=== PATIENT | female | born 1965 | race Caucasian/White ===

== ENCOUNTER → 2017-06-30 | Outpatient (CLI) | payer OTHER ==
--- NOTE | 2017-06-30 13:27 | WOMENS IMAGING REPORT ---
EXAM DESCRIPTION: BILAT DIAGNOSTIC MAMMO W/CAD; U/S BREAST UNILAT LIMITED COMPLETED DATE/TIME: 06/30/2017 8:39 am; 06/30/2017 9:33 am REASON FOR STUDY: LEFT BREAST LUMP;N63.23; LEFT BREAST LUMP N63.23 UNSPECIFIED LUMP IN THE LEFT MOHAN AST, LOWER OUTER QUAD COMPARISON: None. TECHNIQUE: Standard craniocaudal and mediolateral oblique views of each breast recorded using digita l acquisition. Additional left breast 90 mediolateral view. Additional cone compression lower inner quadrant left breast in the CC and MLO orientations. Left breast ultrasound was also performed. LIMITATIONS: None. FINDINGS: RIGHT BREAST MASSES: No suspicious masses. CALCIFICATIONS: No new or suspicious calcifications. ARCHITECTURAL DISTORTION: None. DEVELOPING DENSITY: None. ASYMMETRY: None noted. OTHER: No other significant findings. LEFT BREAST MASSES: No suspicious masses. CALCIFICATIONS: No new or suspicious calcifications. ARCHITECTURAL DISTORTION: None. DEVELOPING DENSITY: None. ASYMMETRY: None noted. OTHER: No other significant finding. Read with the assistance of CAD: .[facility] - R2 Cenova Version 1.3 .[facility] Imaging - R2 Cenova Version 1.3 .[facility] Imaging - R2 Cenova Version 2.4 .[facility] - R2 Cenova Version 2.4 .[facility] - R2 Assistant Distribution Manager Version 9.2 Left breast ultrasound: Along the lower inner quadrant left breast at least 10 cm from the nipple near the sternum, a hypoech oic solid mass is present, 11 x 11 mm in size. Minimal internal color flow. Slightly irregular bord ers. This is suspicious for malignancy. Ultrasound-guided core biopsy and post biopsy clip placemen t with follow-up two-view mammogram recommended. These findings were discussed with Dr. Carias, 1300 hours 06/30/2017. IMPRESSION: No mammographic evidence for malignancy right breast. Solid nodule left breast lower inner quadrant in the parasternal region, suspicious for malignancy. Ultrasound-guided core biopsy with post biopsy clip placement and follow-up two-view mammogram recomm ended. Findings discussed with the patient's primary care provider as above BREAST DENSITY: b. There are scattered areas of fibroglandular density. BIRAD: 4 Suspicious. Biopsy should be considered. RECOMMENDATION: RECOMMENDED FOLLOW UP: Left breast ultrasound-guided core biopsy, post biopsy clip p lacement with follow-up two-view mammogram SPECIFIC INTERVENTION/IMAGING/CONSULTATION RECOMMENDED:As above COMMUNICATION:Patient notified by letter. Report called to Dr. Carias, 1300 hours 06/30/2017 COMMENT: The patient has been notified of the results by letter per SA requirements. Additional no tification policies are in place for contacting patient with suspicious or incomplete findings. Quality ID #[id number]: The [employer] recommends an annual screening mammogram for women aged 40 years or over. This facility utilizes a reminder system to ensure that all patients receive reminder letters, and/or direct phone calls for appointments. This includes reminders for routine scr eening mammograms, diagnostic mammograms, or other Breast Imaging Interventions when appropriate. Th is patient will be placed in the appropriate reminder system. The [employer] (ACR) has developed recommendations for screening MRI of the breast s in certain patient populations, to be used in conjunction with mammography. Breast MRI surveillanc e may be appropriate for women with more than 20% lifetime risk of developing breast cancer as deter mined by genetic testing, significant family history of the disease, or history of mantle radiation f or Hodgkins Disease. ACR Practice Guidelines 2008. TECHNICAL DOCUMENTATION: FINDING NUMBER: (1) ASSESSMENT: (1) JOB ID: [id number] [employer]- All Rights Reserved Reading location - IP/workstation name: [facility]-RR
--- NOTE | 2017-06-30 13:27 | WOMENS IMAGING REPORT ---
EXAM DESCRIPTION: BILAT DIAGNOSTIC MAMMO W/CAD; U/S BREAST UNILAT LIMITED COMPLETED DATE/TIME: 06/30/2017 8:39 am; 06/30/2017 9:33 am REASON FOR STUDY: LEFT BREAST LUMP;N63.23; LEFT BREAST LUMP N63.23 UNSPECIFIED LUMP IN THE LEFT MOHAN AST, LOWER OUTER QUAD COMPARISON: None. TECHNIQUE: Standard craniocaudal and mediolateral oblique views of each breast recorded using digita l acquisition. Additional left breast 90 mediolateral view. Additional cone compression lower inner quadrant left breast in the CC and MLO orientations. Left breast ultrasound was also performed. LIMITATIONS: None. FINDINGS: RIGHT BREAST MASSES: No suspicious masses. CALCIFICATIONS: No new or suspicious calcifications. ARCHITECTURAL DISTORTION: None. DEVELOPING DENSITY: None. ASYMMETRY: None noted. OTHER: No other significant findings. LEFT BREAST MASSES: No suspicious masses. CALCIFICATIONS: No new or suspicious calcifications. ARCHITECTURAL DISTORTION: None. DEVELOPING DENSITY: None. ASYMMETRY: None noted. OTHER: No other significant finding. Read with the assistance of CAD: .[facility] - R2 Cenova Version 1.3 .[facility] Imaging - R2 Cenova Version 1.3 .[facility] Imaging - R2 Cenova Version 2.4 .[facility] - R2 Cenova Version 2.4 .[facility] - R2 Air Carrier Operations Inspector Version 9.2 Left breast ultrasound: Along the lower inner quadrant left breast at least 10 cm from the nipple near the sternum, a hypoech oic solid mass is present, 11 x 11 mm in size. Minimal internal color flow. Slightly irregular bord ers. This is suspicious for malignancy. Ultrasound-guided core biopsy and post biopsy clip placemen t with follow-up two-view mammogram recommended. These findings were discussed with Dr. Carias, 1300 hours 06/30/2017. IMPRESSION: No mammographic evidence for malignancy right breast. Solid nodule left breast lower inner quadrant in the parasternal region, suspicious for malignancy. Ultrasound-guided core biopsy with post biopsy clip placement and follow-up two-view mammogram recomm ended. Findings discussed with the patient's primary care provider as above BREAST DENSITY: b. There are scattered areas of fibroglandular density. BIRAD: 4 Suspicious. Biopsy should be considered. RECOMMENDATION: RECOMMENDED FOLLOW UP: Left breast ultrasound-guided core biopsy, post biopsy clip p lacement with follow-up two-view mammogram SPECIFIC INTERVENTION/IMAGING/CONSULTATION RECOMMENDED:As above COMMUNICATION:Patient notified by letter. Report called to Dr. Carias, 1300 hours 06/30/2017 COMMENT: The patient has been notified of the results by letter per SA requirements. Additional no tification policies are in place for contacting patient with suspicious or incomplete findings. Quality ID #[id number]: The [employer] recommends an annual screening mammogram for women aged 40 years or over. This facility utilizes a reminder system to ensure that all patients receive reminder letters, and/or direct phone calls for appointments. This includes reminders for routine scr eening mammograms, diagnostic mammograms, or other Breast Imaging Interventions when appropriate. Th is patient will be placed in the appropriate reminder system. The [employer] (ACR) has developed recommendations for screening MRI of the breast s in certain patient populations, to be used in conjunction with mammography. Breast MRI surveillanc e may be appropriate for women with more than 20% lifetime risk of developing breast cancer as deter mined by genetic testing, significant family history of the disease, or history of mantle radiation f or Hodgkins Disease. ACR Practice Guidelines 2008. TECHNICAL DOCUMENTATION: FINDING NUMBER: (1) ASSESSMENT: (1) JOB ID: [id number] [employer]- All Rights Reserved Reading location - IP/workstation name: [facility]-RR
== END ==
LOC: WI 07:53
PROVIDERS: ATTEND Internal Medicine
DX: N63.23 Unspecified lump in the left breast, lower outer quadrant (principal)
CPT/HCPCS: 76642; 77066

== ENCOUNTER → 2017-07-16 | Day surgery (SDC) | payer OTHER ==
[~2017-07-16] MED LIST: LIDOCAINE 2% INJ (20 MG/ML) 20 ML MDV ONE
--- NOTE | 2017-07-21 09:09 | WOMENS IMAGING REPORT ---
EXAM DESCRIPTION: U/S BREAST BX; LEFT DIG DX MAMMO NO CHG COMPLETED DATE/TIME: 07/16/2017 2:08 pm; 07/16/2017 2:55 pm REASON FOR STUDY: UNSPECIFIED LUMP; N63.20; N63.20 S/P LEFT US BREAST BX N63.20 UNSPECIFIED LUMP IN THE LEFT BREAST, UNSPECIFIED QUAD COMPARISON: 06/30/2017. TECHNIQUE: The procedure was discussed with the patient and the patient agreed to proceed. The patient was scanned and the area of interest in the 7-8 o'clock position of the left breast was l ocalized. This correlates with the area of concern on prior imaging studies. This area was targeted for ultrasound-guided core biopsy. After sterile skin prep and 10 mL local lidocaine 1% for skin and deep tissue anesthesia, a 14 gauge coaxial core biopsy needle was used to obtain several cores of tissue from the lesion. Under ultraso und guidance, a marker clip was placed in the areas sampled. There were no immediate post-procedure complications. MAMMOGRAM: Post-procedure two view mammogram was acquired in the digital mammogram suite. The clip wa s not adequately visualized due to the far inferior medial position of the lesion. 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 Pathology is concordant. LIMITATIONS: None. FINDINGS: Ultrasound guided breast biopsy as described above. POST PROCEDURE MAMMOGRAMS FOR MARKER PLACEMENT: Yes IMPRESSION: ULTRASOUND-GUIDED CORE BIOPSY OF THE LEFT BREAST YIELDS A DIAGNOSIS OF poorly Differenti ated Carcinoma. COMMENT: COMMUNICATION: Two attempts were made to notify the patient by phone of the pathology repor t with no answer. The patient's provider has been notified of the findings. The provider will discus s the findings with the patient. Patient medication list reviewed: Yes- Quality ID# [id number]:Eligible professional attests to documenting i n the medical record they obtained, updated, or reviewed the patient's current medications. TECHNICAL DOCUMENTATION: JOB ID: [id number] [employer]- All Rights Reserved Reading location - IP/workstation name: [email or web address]
== END ==
LOC: WI 12:37 → EDSTATUS 13:00
PROVIDERS: ATTEND Internal Medicine
DX: C50.912 Malignant neoplasm of unspecified site of left female breast (principal)
CPT/HCPCS: 88342 ×2; 88341 ×2; 88305 ×2; 19083; J3490

== ENCOUNTER → 2017-07-28 | Outpatient (CLI) | payer OTHER ==
--- NOTE | 2017-07-29 16:06 | RADIOLOGY REPORT (SQ) ---
EXAM DESCRIPTION: PET CT SKULL/THIGH COMPLETED DATE/TIME: 07/28/2017 7:36 pm REASON FOR STUDY: C80.1 L BREAST PER PATH C50.919 MALIGNANT NEOPLASM OF UNSP SITE OF UNSPECIFIED FE MAL COMPARISON: Caps left breast ultrasound-guided core biopsy 07/16/2017 Diagnostic mammograms and ultrasound 06/30/2017 RADIONUCLIDE AND DOSE: 11.3 mCi F18 FDG The route of agent administration: Intravenous FASTING BLOOD SUGAR: 108 mg/dl CONTRAST TYPE AND DOSE: No CT contrast given. TECHNIQUE: Blood glucose level was verified. Above dose of FDG was injected intravenously. 2-D seg mented attenuation correction images were obtained from the base of the skull to the midthighs. Nonc ontrast CT images were obtained for attenuation correction and fusion with emission images. CT image s were performed without oral or intravenous contrast and are not sensitive for parenchymal lesions. A series of overlapping emission PET images were obtained. [facility] by the radiologist. Images stored on PACS. LIMITATIONS: None. FINDINGS: HEAD AND NECK: No areas of abnormal metabolic activity in the soft tissues of the head and neck. CHEST: In the medial left breast lower inner quadrant 7 to 8 o'clock position, a soft tissue density nodule is present with a biopsy clip. Nodule measures 13 mm in diameter on axial image 98, with SUV of 8.3 compatible with diagnosis of poorly differentiated carcinoma. There are no worrisome pulmonary nodules for primary lung neoplasm. Remainder of the chest is otherw ise unremarkable. ABDOMEN AND PELVIS: No areas of abnormal metabolic activity in the abdomen or pelvis. Expected physi ologic activity is present in the genitourinary system and bowel. PROXIMAL LOWER EXTREMITIES: No areas of abnormal metabolic activity in the soft tissues of the lower extremities. BONES: No abnormal metabolic activity in the visualized skeleton. ADDITIONAL CT FINDINGS: 1.7 cm left upper pole renal cortical cyst. Post cholecystectomy with a fat containing ventral hernia superior to the umbilicus in the midline, containing mesenteric fat. This is best shown on axial image 145. OTHER: Liver background activity 2.8 SUV. Blood pool background activity 1.9 SUV IMPRESSION: Solitary hypermetabolic nodule in the medial left breast, lower inner quadrant. No PET- CT evidence of metastatic disease. No PET-CT evidence of lung primary tumor. Findings discussed with Dr. Pedersen TECHNICAL DOCUMENTATION: JOB ID: [id number] [email or web address]- All Rights Reserved Reading location - IP/workstation name: [email or web address]
== END ==
LOC: RAD 18:26
PROVIDERS: ATTEND Internal Medicine Medical Oncology
DX: C50.312 Malignant neoplasm of lower-inner quadrant of left female breast (principal)
CPT/HCPCS: 78815; A9552

== ENCOUNTER → 2017-10-15 | Outpatient (CLI) | payer OTHER ==
--- NOTE | 2017-10-15 16:45 | RADIOLOGY REPORT (SQ) ---
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 RADIONUCLIDE AND DOSE: 26.6 mCi technetium 99m labeled red blood cells The route of agent administration: Intravenous TECHNIQUE: Following administration of the radionuclide, gated images of the heart are obtained in t hree projections. Left ventricular functional analysis performed. LIMITATIONS: None. FINDINGS: LEFT VENTRICULAR FUNCTION: EJECTION FRACTION: 55%. END-DIASTOLIC VOLUME: 45 mL. END-SYSTOLIC VOLUME: 17 mL. WALL MOTION: No focal wall motion abnormalities. OTHER: No other significant finding. IMPRESSION: NORMAL CARDIAC MUGA STUDY. LEFT VENTRICULAR EJECTION FRACTION OF 55%. TECHNICAL DOCUMENTATION: JOB ID: [id number] [employer]- All Rights Reserved Reading location - IP/workstation name: [email or web address]
== END ==
LOC: RAD 13:07
PROVIDERS: ATTEND Internal Medicine Medical Oncology
DX: I42.7 Cardiomyopathy due to drug and external agent (principal)
CPT/HCPCS: 78472; A9560; Q9969

== ENCOUNTER 2017-12-12 09:45 | Emergency (ER) | payer OTHER ==
--- NOTE | 2017-12-12 10:04 | ER Document Report ---
ED Medical Screen (RME) - General Chief Complaint: Redness of Eye Stated Complaint: EYE REDNESS Time Seen by Provider: 12/12/17 10:02 Mode of Arrival: Ambulatory Information source: Patient TRAVEL OUTSIDE OF THE [place] IN LAST 30 DAYS: No - HPI Patient complains to provider of: redness L eye and UTI symptoms Onset: Yesterday - pt with onset of redness L eye and eyelid swelling since yesterday and urinary frequency - Related Data Allergies/Adverse Reactions: codeine [Codeine] Allergy (Verified 05/20/14 14:30) Past Medical History - Past Medical History Cardiac Medical History: Reports: Hx Hypercholesterolemia, Hx Hypertension Endocrine Medical History: Reports: Hx Diabetes Mellitus Type 2 Psychiatric Medical History: Reports: Hx Bipolar Disorder, Hx Schizophrenia Past Surgical History: Reports: Hx Section, Hx Cholecystectomy - Immunizations Hx Diphtheria, Pertussis, Tetanus Vaccination: Yes Physical Exam - Vital signs Vitals: Temp Pulse Resp BP Pulse Ox 99.2 F 122 H 24 H 123/90 H 94 12/12/17 09:53 12/12/17 09:53 12/12/17 09:53 12/12/17 09:53 12/12/17 09:53 Course - Vital Signs Vital signs: Temp Pulse Resp BP Pulse Ox 99.2 F 122 H 24 H 123/90 H 94 12/12/17 09:53 12/12/17 09:53 12/12/17 09:53 12/12/17 09:53 12/12/17 09:53 Doctor's Discharge - Discharge Referrals: ARNOLD ALMONTE MD [Primary Care Provider] - Follow up as needed
[2017-12-12 10:53] LABS: APPEARANCE,URINE CLOUDY; BILIRUBIN,URINE NEGATIVE (NEGATIVE); COLOR,URINE YELLOW; GLUCOSE, URINE NEGATIVE (NEGATIVE); KETONES,URINE 20 mg/dL (NEGATIVE); LEUKOCYTE ESTERASE,URINE TRACE (NEGATIVE); NITRITE,URINE NEGATIVE (NEGATIVE); PROTEIN,URINE 100 mg/dL (NEGATIVE); URINE SPECIFIC GRAVITY 1.017
--- NOTE | 2017-12-12 12:26 | ER Document Report ---
ED Eye Complaint - General Chief Complaint: Redness of Eye Stated Complaint: EYE REDNESS Time Seen by Provider: 12/12/17 10:02 Mode of Arrival: Ambulatory TRAVEL OUTSIDE OF THE [place] IN LAST 30 DAYS: No - HPI Patient complains to provider of: eye itching Onset: Other - Ms. Tobias presented to the emergency department today for evaluation of an itching and red left eye in the setting of previously having allergies which cause her eyes sometimes to water and itch, however because she had been itching it it is become more swollen and she is concerned that she may have accidentally scratched it. She also has been coughing more than usual and is worried there may be some blood in the eye. Eye location: Left - Related Data Allergies/Adverse Reactions: codeine [Codeine] Allergy (Verified 12/12/17 10:06) Past Medical History - General Information source: Patient - Social History Smoking Status: Current Every Day Smoker Chew tobacco use (# tins/day): No Frequency of alcohol use: Rare Drug Abuse: None Family History: Reviewed & Not Pertinent Patient has suicidal ideation: No Patient has homicidal ideation: No - Past Medical History Cardiac Medical History: Reports: Hx Hypercholesterolemia, Hx Hypertension Endocrine Medical History: Reports: Hx Diabetes Mellitus Type 2 Renal/ Medical History: Denies: Hx Peritoneal Dialysis Psychiatric Medical History: Reports: Hx Bipolar Disorder, Hx Schizophrenia Past Surgical History: Reports: Hx Breast Surgery, Hx Section, Hx Cholecystectomy - Immunizations Hx Diphtheria, Pertussis, Tetanus Vaccination: Yes Review of Systems - Review of Systems -: Yes All other systems reviewed and negative Physical Exam - Vital signs Vitals: Temp Pulse Resp BP Pulse Ox 99.2 F 122 H 24 H 123/90 H 94 12/12/17 09:53 12/12/17 09:53 12/12/17 09:53 12/12/17 09:53 12/12/17 09:53 - General General appearance: Appears well In distress: None - HEENT Head: Normocephalic Eyes: Other - Periorbital ecchymoses along the left eye with slight swelling, the left eye is grossly injected, there is appreciable chemosis, there is no appreciable hypopyon, no appreciable hyphema Cornea: Corneal abrasion, Flourescein stain uptake Extraocular movements intact: Yes Eyelashes: Normal Pupils: PERRL - Respiratory Respiratory status: No respiratory distress Chest status: Nontender Breath sounds: Normal Chest palpation: Normal - Cardiovascular Rhythm: Regular Heart sounds: Normal auscultation Murmur: No - Abdominal Inspection: Normal Distension: No distension Bowel sounds: Normal Tenderness: Nontender Organomegaly: No organomegaly - Back Back: Normal, Nontender - Extremities General upper extremity: Normal inspection, Nontender, Normal color, Normal ROM , Normal temperature General lower extremity: Normal inspection, Nontender, Normal color, Normal ROM , Normal temperature, Normal weight bearing. No: Marianna's sign - Neurological Neuro grossly intact: Yes Cognition: Normal Orientation: AAOx4 [place] Coma Scale Eye Opening: Spontaneous Laura Coma Scale Verbal: Oriented [place] Coma Scale Motor: Obeys Commands [place] Coma Scale Total: 15 Speech: Normal Motor strength normal: LUE, RUE, LLE, RLE Sensory: Normal - Psychological Associated symptoms: Normal affect, Normal mood Course - Re-evaluation Re-evalutation: This woman presented for redness in her left eye. She notes that she has been coughing as a result of her chronic smoking and occasionally of urinary tract infections she has had in the past. On examination she is got an obvious subconjunctival left eye. She does appreciably have some ecchymosis as well in the cornea of the left eye. Upon floor seen staining of the left eye is notable for uptake consistent with a likely corneal abrasion. Patient thinks that she may have gotten an eyelash into her eye. She states that she has had issues with urinary tract infections and that actually makes her cough more she believes that the likely cause of her subconjunctival hemorrhages I did ask what might be straining her. She is been rubbing her eye excessively as well because of seasonal allergies. In total through triage as patient did have urine collected and as a result she is got a evidence of potential contaminated urine, corneal abrasion, subconjunctival hemorrhage, and ecchymosis of the eye. There is no acute other abnormality identified though it is notable that she does have some evidence of an elevated heart rate I believe this may be because she was coughing at the time of obtaining it. Her heart rate improved while at rest in the emergency department she was comfortable on room air without an elevated work of breathing. We discussed treatment options and she stated that she was willing to try outpatient treatment with antibiotic drops and antibiotics for her urine infection. She was given return precautions and encouraged follow-up with an conservation engineer in the coming week. - Vital Signs Vital signs: Temp Pulse Resp BP Pulse Ox 99.2 F 105 H 24 H 104/67 96 12/12/17 09:53 12/12/17 12:23 12/12/17 09:53 12/12/17 12:23 12/12/17 12:23 - Laboratory Laboratory results interpreted by me: 12/12/17 10:16 Urine Protein 100 H Urine Ketones 20 H Urine Blood LARGE H Urine Urobilinogen 2.0 H Ur Leukocyte Esterase TRACE H Discharge - Discharge Clinical Impression: Cough Subconjunctival hemorrhage Qualifiers: Laterality: left Qualified Code(s): H11.32 - Conjunctival hemorrhage, left eye Chemosis Qualifiers: Laterality: left Qualified Code(s): H11.422 - Conjunctival edema, left eye Urinary tract infection Qualifiers: Urinary tract infection type: site unspecified Hematuria presence: with hematuria Qualified Code(s): N39.0 - Urinary tract infection, site not specified Corneal abrasion Qualifiers: Encounter type: initial encounter Laterality: left Qualified Code(s): S05.02XA - Injury of conjunctiva and corneal abrasion without foreign body, left eye, initial encounter Condition: Good Disposition: HOME, SELF-CARE Instructions: Antibiotic Therapy ([facility]), Eyedrop Use ([facility]), Urinary Tract Infection ([facility]) Additional Instructions: Your seen today in the emergency department for your eye pain. It looks like you have a corneal abrasion today. Use the antibiotic drops prescribed to you. Make sure that you are also using artificial tears at least 4 times daily. Anabiotic prescribed you to help treat this infection in your urine. Stop smoking. Likely your cough is related to your chronic smoking, your cough is what caused the redness around your eye. Return for any worsening fevers, chills, inability to see out of your left eye or if your eyeball begins to have pain. Prescriptions: Ciprofloxacin HCl [Ciloxan 0.3% Oph Soln 2.5 ml] 1 drop OP BID 10 Days #1 bottle Ciprofloxacin HCl [Cipro 500 mg Tablet] 500 mg PO BID #20 tablet Referrals: ARNOLD ALMONTE MD [Primary Care Provider] - Follow up as needed
[2017-12-12 12:28] VITALS: BP 104/67
== END 2017-12-12 12:47 | disposition home or self-care (01) ==
LOC: ER 09:45
DX: S05.12XA Contusion of eyeball and orbital tissues, left eye, initial encounter (principal); X58.XXXA Exposure to other specified factors, initial encounter; H11.422 Conjunctival edema, left eye; N39.0 Urinary tract infection, site not specified; F17.200 Nicotine dependence, unspecified, uncomplicated; R05 Cough; I10 Essential (primary) hypertension; E11.9 Type 2 diabetes mellitus without complications; Z88.5 Allergy status to narcotic agent
CPT/HCPCS: 81001; 99283

== ENCOUNTER → 2018-03-17 | Outpatient (CLI) | payer MEDICAID, OTHER ==
--- NOTE | 2018-03-17 16:26 | WOMENS IMAGING REPORT ---
EXAM DESCRIPTION: U/S BREAST UNILATERAL, COMPL; 3D DX MAMMO BILAT COMPLETED DATE/TIME: 03/17/2018 12:36 pm; 03/17/2018 10:37 am REASON FOR STUDY: N63.20 UNSPECIFIED LUMP IN THE LEFT BREAST; N63.20 UNSPECIFIED LUMP IN LEFT BREAST , UNSPECIFIED QUADRANT LEFT LUMP N63.20 UNSPECIFIED LUMP IN THE LEFT BREAST, UNSPECIFIED QUAD COMPARISON: Multiple mammograms and ultrasound exams since 06/30/2017 TECHNIQUE: Standard craniocaudal and mediolateral oblique views of each breast recorded using digita l acquisition and breast tomosynthesis. Additional left breast 90 mediolateral tomosynthesis, and cone compression tomosynthesis in the left MLO and CC projections. Patient gives a history of palpable abnormality in the left breast lower inner quadrant. Ultrasound of this area was also performed. LIMITATIONS: None. FINDINGS: RIGHT BREAST MASSES: No suspicious masses. CALCIFICATIONS: No new or suspicious calcifications. ARCHITECTURAL DISTORTION: None. DEVELOPING DENSITY: None. ASYMMETRY: None noted. OTHER: No other significant findings. LEFT BREAST MASSES: No suspicious masses. CALCIFICATIONS: No new or suspicious calcifications. ARCHITECTURAL DISTORTION: None. DEVELOPING DENSITY: None. ASYMMETRY: None noted. OTHER: In the left breast lower inner quadrant 7 to 8 o'clock position, postoperative changes are pre sent with breast parenchymal scarring and oil cyst formation. Oil cysts were identified at ultrasoun d in the area Read with the assistance of CAD: .[facility] - R2 Cenova Version 1.3 .[facility] - R2 Cenova Version 2.1 .[facility] - R2 Cenova Version 2.4 .[facility] - R2 Cenova Version 2.4 .[facility] - R2 Project Management Version 9.2 Left breast ultrasound: Patient indicates a new palpable abnormality in the lower inner quadrant left breast 8 to 9 o'clock p osition. Postsurgical changes are seen at ultrasound, with a 13 x 8 mm focus of fat necrosis at ultr asound. This correlates with the palpable finding. No worrisome features. Other oil cysts are pres ent in the left breast medially in the periareolar region, less than a cm in size, benign IMPRESSION: No mammographic/ tomosynthesis evidence for malignancy bilaterally. No ultrasound evide nce for malignancy left breast. Clinical follow-up for palpable abnormalities. BREAST DENSITY: b. There are scattered areas of fibroglandular density. BIRAD: 2 Benign findings. RECOMMENDATION: RECOMMENDED FOLLOW UP: Clinical follow-up for left breast palpable abnormality. Oth erchiara, continue right breast screening and left breast diagnostic mammograms in March 2019 SPECIFIC INTERVENTION/IMAGING/CONSULTATION RECOMMENDED:No additional intervention/ imaging/consultati on needed at this time. COMMUNICATION:The negative/benign results were communicated to the patient. COMMENT: The patient has been notified of the results by letter per SA requirements. Additional no tification policies are in place for contacting patient with suspicious or incomplete findings. Quality ID #225: The [employer] recommends an annual screening mammogram for women aged 40 years or over. This facility utilizes a reminder system to ensure that all patients receive reminder letters, and/or direct phone calls for appointments. This includes reminders for routine scr eening mammograms, diagnostic mammograms, or other Breast Imaging Interventions when appropriate. Th is patient will be placed in the appropriate reminder system. The [employer] (ACR) has developed recommendations for screening MRI of the breast s in certain patient populations, to be used in conjunction with mammography. Breast MRI surveillanc e may be appropriate for women with more than 20% lifetime risk of developing breast cancer as deter mined by genetic testing, significant family history of the disease, or history of mantle radiation f or Hodgkins Disease. ACR Practice Guidelines 2008. DBT Technology DBT is a type of tomographic mammography. With conventional mammography, overlapping breast tissue ma y make lesions difficult to detect, even with good compression. DBT uses an x-ray tube that rotates a round the breast, taking images at different angles. These images are then combined to create thin sl ices of the breast that the radiologist can view as a 3D reconstruction. The [employer] unit can perform full-field digital mammograms (2D imaging); or DBT (3D imaging); or both, in a combination mode that quickly performs both the mammogram and the tomosynthesis scan while the breast is still compressed. PQRS 6045F: Fluoroscopic imaging is not utilized for breast tomosynthesis. TECHNICAL DOCUMENTATION: FINDING NUMBER: (1) ASSESSMENT: (1) JOB ID: [id number] [employer]- All Rights Reserved Reading location - IP/workstation name: [email or web address]
--- NOTE | 2018-03-17 16:26 | WOMENS IMAGING REPORT ---
EXAM DESCRIPTION: U/S BREAST UNILATERAL, COMPL; 3D DX MAMMO BILAT COMPLETED DATE/TIME: 03/17/2018 12:36 pm; 03/17/2018 10:37 am REASON FOR STUDY: N63.20 UNSPECIFIED LUMP IN THE LEFT BREAST; N63.20 UNSPECIFIED LUMP IN LEFT BREAST , UNSPECIFIED QUADRANT LEFT LUMP N63.20 UNSPECIFIED LUMP IN THE LEFT BREAST, UNSPECIFIED QUAD COMPARISON: Multiple mammograms and ultrasound exams since 06/30/2017 TECHNIQUE: Standard craniocaudal and mediolateral oblique views of each breast recorded using digita l acquisition and breast tomosynthesis. Additional left breast 90 mediolateral tomosynthesis, and cone compression tomosynthesis in the left MLO and CC projections. Patient gives a history of palpable abnormality in the left breast lower inner quadrant. Ultrasound of this area was also performed. LIMITATIONS: None. FINDINGS: RIGHT BREAST MASSES: No suspicious masses. CALCIFICATIONS: No new or suspicious calcifications. ARCHITECTURAL DISTORTION: None. DEVELOPING DENSITY: None. ASYMMETRY: None noted. OTHER: No other significant findings. LEFT BREAST MASSES: No suspicious masses. CALCIFICATIONS: No new or suspicious calcifications. ARCHITECTURAL DISTORTION: None. DEVELOPING DENSITY: None. ASYMMETRY: None noted. OTHER: In the left breast lower inner quadrant 7 to 8 o'clock position, postoperative changes are pre sent with breast parenchymal scarring and oil cyst formation. Oil cysts were identified at ultrasoun d in the area Read with the assistance of CAD: .[facility] - R2 Cenova Version 1.3 .[facility] - R2 Cenova Version 2.1 .[facility] - R2 Cenova Version 2.4 .[facility] - R2 Cenova Version 2.4 .[facility] - R2 Project Management Professor Version 9.2 Left breast ultrasound: Patient indicates a new palpable abnormality in the lower inner quadrant left breast 8 to 9 o'clock p osition. Postsurgical changes are seen at ultrasound, with a 13 x 8 mm focus of fat necrosis at ultr asound. This correlates with the palpable finding. No worrisome features. Other oil cysts are pres ent in the left breast medially in the periareolar region, less than a cm in size, benign IMPRESSION: No mammographic/ tomosynthesis evidence for malignancy bilaterally. No ultrasound evide nce for malignancy left breast. Clinical follow-up for palpable abnormalities. BREAST DENSITY: b. There are scattered areas of fibroglandular density. BIRAD: 2 Benign findings. RECOMMENDATION: RECOMMENDED FOLLOW UP: Clinical follow-up for left breast palpable abnormality. Oth erchiara, continue right breast screening and left breast diagnostic mammograms in March 2019 SPECIFIC INTERVENTION/IMAGING/CONSULTATION RECOMMENDED:No additional intervention/ imaging/consultati on needed at this time. COMMUNICATION:The negative/benign results were communicated to the patient. COMMENT: The patient has been notified of the results by letter per SA requirements. Additional no tification policies are in place for contacting patient with suspicious or incomplete findings. Quality ID #[id number]: The [employer] recommends an annual screening mammogram for women aged 40 years or over. This facility utilizes a reminder system to ensure that all patients receive reminder letters, and/or direct phone calls for appointments. This includes reminders for routine scr eening mammograms, diagnostic mammograms, or other Breast Imaging Interventions when appropriate. Th is patient will be placed in the appropriate reminder system. The [employer] (ACR) has developed recommendations for screening MRI of the breast s in certain patient populations, to be used in conjunction with mammography. Breast MRI surveillanc e may be appropriate for women with more than 20% lifetime risk of developing breast cancer as deter mined by genetic testing, significant family history of the disease, or history of mantle radiation f or Hodgkins Disease. ACR Practice Guidelines 2008. DBT Technology DBT is a type of tomographic mammography. With conventional mammography, overlapping breast tissue ma y make lesions difficult to detect, even with good compression. DBT uses an x-ray tube that rotates a round the breast, taking images at different angles. These images are then combined to create thin sl ices of the breast that the radiologist can view as a 3D reconstruction. The [employer] unit can perform full-field digital mammograms (2D imaging); or DBT (3D imaging); or both, in a combination mode that quickly performs both the mammogram and the tomosynthesis scan while the breast is still compressed. PQRS 6045F: Fluoroscopic imaging is not utilized for breast tomosynthesis. TECHNICAL DOCUMENTATION: FINDING NUMBER: (1) ASSESSMENT: (1) JOB ID: [id number] [email or web address]- All Rights Reserved Reading location - IP/workstation name: [facility]
== END ==
LOC: WI 10:06
PROVIDERS: ATTEND Internal Medicine Medical Oncology
DX: N63.24 Unspecified lump in the left breast, lower inner quadrant (principal)
CPT/HCPCS: 76641; 77066; G0279; 77062

== ENCOUNTER → 2018-06-09 | Outpatient (CLI) | payer MEDICAID, OTHER ==
--- NOTE | 2018-06-09 13:30 | WOMENS IMAGING REPORT ---
EXAM DESCRIPTION: BONE DENSITY HIP/SPINE COMPLETED DATE/TIME: 06/09/2018 1:17 pm REASON FOR STUDY: M81.0 AGE RELATED OSTEOPOROSIS WITHOUT CURRENT PATHOLOGICAL FRACTURE M81.0 AGE-RE LATED OSTEOPOROSIS W/O CURRENT PATHOLOGICAL FRAC COMPARISON: None. TECHNIQUE: Dual-Energy X-ray Absorptiometry (DEXA) of the AP Spine and Hip. LIMITATIONS: None. FINDINGS: LUMBAR SPINE: The bone mineral density (BMD) measured from L1-L4 in the AP projection correlates with a T-score of 0.1, which is normal as defined by the World Health Organization. HIP: The bone mineral density (BMD) measured in the left hip correlates with a T-score of 0.2 in the femor al neck, which is normal as defined by the World Health Organization. IMPRESSION: 1. LUMBAR SPINE: Normal 2. HIP: Normal COMMENT: The World Health Organization defines low BMD as follows: T-score: Normal: Greater than -1.0 Osteopenia: Between -1.0 and -2.5 Osteoporosis: Less than -2.5 without fractures Established osteoporosis: Less than -2.5 with fractures In general, you may wish to consider: Diagnosis Treatment Follow-up DEXA Normal BMD Prevention 2-3 years Osteopenia Prevention/Therapy 1-2 years Osteoporosis Therapy Yearly TECHNICAL DOCUMENTATION: JOB ID: [id number] [employer]- All Rights Reserved Reading location - IP/workstation name: [email or web address]
== END ==
LOC: WI 12:58
PROVIDERS: ATTEND Internal Medicine Medical Oncology
DX: M81.0 Age-related osteoporosis without current pathological fracture (principal)
CPT/HCPCS: 77080